=== PATIENT | male | born 1970 | race Caucasian/White ===

== ENCOUNTER 2021-11-20 17:33 | Inpatient (IN) | payer OTHER ==
[~2021-11-20] VITALS: Ht 180.3 cm; Wt 77.1 kg
[~2021-11-20 17:33] MED LIST: KEFLEX CAP 500500 MG PO; NAPROSYN500 MG PO; NORCO 7.5-3251 EACH PO; TORADOL 10 MG T10 MG PO; ZOFRAN4 MG PO
[2021-11-20 21:28] LABS: HEMOGLOBIN 14.4 gm/dl (14.0-17.5); RED BLOOD COUNT 4.84 M/UL (4.20-5.50); WHITE BLOOD COUNT 10.6 K/UL (4.5-11.0)
[2021-11-21 01:20] LABS: BUN/CREATININE RATIO 21 (0-10)
[2021-11-21 09:03] LABS: HEMOGLOBIN 14.5 gm/dl (14.0-17.5); RED BLOOD COUNT 4.77 M/UL (4.20-5.50); WHITE BLOOD COUNT 12.9 K/UL (4.5-11.0)
[2021-11-21 09:20] LABS: BUN/CREATININE RATIO 17 (0-10)
[2021-11-23] MEDS ORDERED: LISINOPRIL10 MG PO (09:39)
[2021-11-23] MEDS ORDERED: ZYVOX600 MG PO (09:39)
[2021-11-23] MEDS ORDERED: HYDROCHLOROTHIA25 MG PO (09:39)
[2021-11-23] MEDS ORDERED: KEFLEX CAP 250250 MG PO (12:41)
[2021-11-23] MEDS ORDERED: BACTRIM DS TAB1 EACH PO (12:41)
[2021-11-23] MEDS ORDERED: NORVASC5 MG PO (12:43)
== END 2021-11-23 13:50 | disposition home or self-care (01) | DRG 603 ==
LOC: ER1 17:33 → M/S 20:52 → CDU 20:52 → M/S 11-21 07:37
PROVIDERS: Emergency Medicine; ADMIT Internal Medicine
PROC: 3E03329 Introduction of Other Anti-infective into Peripheral Vein, Percutaneous Approach (ICD-10-PCS; principal; 2021-11-20)
PROC: 0H9GXZZ Drainage of Left Hand Skin, External Approach (ICD-10-PCS; 2021-11-20)
DX: L03.114 Cellulitis of left upper limb (principal); E87.1 Hypo-osmolality and hyponatremia; I10 Essential (primary) hypertension; F17.200 Nicotine dependence, unspecified, uncomplicated; L02.414 Cutaneous abscess of left upper limb; Z96.651 Presence of right artificial knee joint; Z79.899 Other long term (current) drug therapy; Z98.890 Other specified postprocedural states; Z71.6 Tobacco abuse counseling
CPT/HCPCS: 36415; 73130; 80053; 80061; 80202; 82550; 82553; 82607; 83036; 83605; 83735; 84439; 84443; 84484; 85025; 85652; 86140; 87040; 96374; 96375; 96376; 99284; G0378; J1170; J1650; J2543; J3370; J7030; J7070; U0002